=== PATIENT | male | born 1955 | race African-American/Black ===

== ENCOUNTER → 2018-10-02 | Day surgery (SDC) | payer MEDICARE, MEDICAID ==
[~2018-10-02] MED LIST: LIDOCAINE 1% PF 2 ML VIAL. ID PRN; MIDAZOLAM HCL/PF 2 MG/2 ML VIAL. IV PRN; PROPOFOL 40 ML IV ONE; fentaNYL PF VIAL 100 MCG/2 ML VIAL IV PRN
[2018-10-02] MEDS: IV RINGERS,LACTATED 1000ML 1,000 ML IV SCH (08:07)
[2018-10-02 09:46] VITALS: BP 136/84
--- NOTE | 2018-10-02 10:24 | HP ---
ADMIT DATE: 10/02/2018 REASON FOR ADMISSION: History of colorectal screening. HISTORY OF PRESENT ILLNESS: A 63-year-old -[place] male with past medical history significant for osteoarthrosis is seen for a screening colon exam. Bowel habits regular without diarrhea or constipation. There has been no change in weight. No melena or hematochezia. No family history of colon polyps or colon cancer is elicited. He is otherwise without additional complaints. ALLERGIES: None. MEDICATIONS: None. FAMILY AND SOCIAL HISTORY: Noncontributory. He is a nonsmoker, but is a heavy drinker. PAST SURGICAL HISTORY: Noncontributory. REVIEW OF SYSTEMS: Per records. PHYSICAL EXAMINATION: GENERAL: Reveals a thin -[place] male. VITAL SIGNS: Temp 98.4, pulse 74, respirations 20. HEENT: Normocephalic and atraumatic. Pupils and extraocular muscles are not tested. Sclerae are anicteric. NECK: Supple. LUNGS: Clear. CARDIOVASCULAR: Reveals an S1, S2 without S3, S4 or appreciable murmur. ABDOMEN: Reveals soft abdomen, normal bowel sounds without appreciable hepatosplenomegaly. EXTREMITIES: Reveals no cyanosis, clubbing or edema. IMPRESSION: Colorectal screening is warranted at this time. Risks and benefits of procedure including risk of hemorrhage and perforation requiring operation, the patient is willing to proceed. LAVONNE LIRIANO MD DR: ARAMIS/jacy JOB#: [id number] / [id number]
== END | disposition home or self-care (01) ==
LOC: SURG 07:31
PROVIDERS: ATTEND Internal Medicine Gastroenterology
DX: Z12.11 Encounter for screening for malignant neoplasm of colon (principal); K57.30 Diverticulosis of large intestine without perforation or abscess without bleeding; K64.0 First degree hemorrhoids; M19.90 Unspecified osteoarthritis, unspecified site; Z72.89 Other problems related to lifestyle
CPT/HCPCS: G0121; J2704; 45378

== ENCOUNTER 2020-09-19 15:37 | Emergency (ER) | payer MEDICARE, MEDICAID ==
[~2020-09-19] VITALS: Ht 170.2 cm; Wt 58.0 kg
--- NOTE | 2020-09-19 16:16 | PHYS DOC ---
General Adult EDM: Chief Complaint: NEURO SYMPTOMS/DEFICITS HPI: HPI: Patient is a 65 year old male who presents to the ED today with the mother, mother reports patient has had slurred speech since yesterday around 1 PM when he returned home. Mother reports patient left at 10:30 AM and went to unknown which is his typical behavior, he returned back around 1 PM with slurred speech. Mother states she took patient to the PCPs office and was sent at an imaging center for [facility] when they were at the [facility] center they sent patient to the ED. Patient reports drinking an unknown amount of alcohol yesterday. PCP Dr. Enoc Cano Review of Systems: Review of Systems: Constitutional: Denies fever or chills. [] Eyes: Denies change in visual acuity. [] HENT: Denies nasal congestion or sore throat. [] Respiratory: Denies cough or shortness of breath. [] Cardiovascular: Denies chest pain or edema. [] GI: Denies abdominal pain, nausea, vomiting, bloody stools or diarrhea. [] : Denies dysuria. [] Musculoskeletal: Denies back pain or joint pain. [] Integument: Denies rash. [] Neurologic: Reports slurred speech. Denies headache, focal weakness or sensory changes. [] Psychiatric: Denies depression or anxiety. [] Heart Score: Risk Factors: Risk Factors: DM, Current or recent (<one month) smoker, HTN, HLP, family history of CAD, obesity. Risk Scores: Score 0 - 3: 2.5% MACE over next 6 weeks - Discharge Home Score 4 - 6: 20.3% MACE over next 6 weeks - Admit for Clinical Observation Score 7 - 10: 72.7% MACE over next 6 weeks - Early Invasive Strategies Allergies: Allergies: Allergies Coded Allergies Type Severity Reaction Last Updated Verified No Known Drug Allergies 10/02/18 No Physical Exam: PE: Constitutional: Well developed, well nourished, no acute distress, non-toxic appearance. [] HENT: Normocephalic, atraumatic, bilateral external ears normal, oropharynx moist, no oral exudates, nose normal. [] Eyes: PERRLA, EOMI, conjunctiva normal, no discharge. [] Neck: Normal range of motion, no tenderness, supple, no stridor. [] Cardiovascular:Heart rate regular rhythm, no murmur [] Lungs & Thorax: Bilateral breath sounds clear to auscultation [] Abdomen: Bowel sounds normal, soft, no tenderness, no masses, no pulsatile masses. [] Skin: Warm, dry, no erythema, no rash. [] Back: No tenderness, no CVA tenderness. [] Extremities: No tenderness, no cyanosis, no clubbing, ROM intact, no edema. [] Neurologic: Alert and oriented X 3, normal motor function, normal sensory function, no focal deficits noted. Cranial nerves II through XII intact. Slurred speech noted on physical exam. Right facial droop also noted. Psychologic: Affect normal, judgement normal, mood normal. [] EKG: EK interepreted by Dr. Cruz sinus rhythm HR 77 no STEMI[] Radiology/Procedures: Radiology/Procedures: []PROCEDURE: CT HEAD WO CONTRAST CT HEAD INDICATION: Reason: slurred speech / Spl. Instructions: / History: COMPARISON: None Available. Exposure: One or more of the following individualized dose reduction techniques were utilized for this examination: 1. Automated exposure control 2. Adjustment of the mA and/or kV according to patient size 3. Use of iterative reconstruction technique TECHNIQUE: 5 mm contiguous axial images were obtained from the skull base to the vertex in both bone and soft tissue algorithm. FINDINGS: No abnormal attenuation within the brain parenchyma. No evidence of acute intracranial hemorrhage. No extra-axial fluid collections . No mass effect or midline shift. Ventricular size is appropriate. Basal cisterns are patent. No fractures identified.Gomes-white differentiation is preserved.Globes and orbits are within normal limits. Paranasal sinuses and mastoid air cells are clear. IMPRESSION: No acute intracranial findings. Electronically signed by: Andrew Sales MD (09/19/2020 4:26 PM) [id number] DICTATED and SIGNED BY: ANDREW SALES MD DATE: 09/19/20 [id number] 0 PROCEDURE: PORTABLE CHEST 1V XR CHEST 1V History: Reason: slurred speech / Spl. Instructions: / History: Comparison: None. Findings: No consolidation or pleural effusion. Normal heart size. No pneumothorax. Left glenohumeral DJD. Impression: 1. No acute cardiopulmonary process. Electronically signed by: Suhail Burns DO (09/19/2020 4:14 PM) [id number] DICTATED and SIGNED BY: SUHAIL BURNS DO DATE: 09/19/20 [id number] 0 Course & Med Decision Making: Course & Med Decision Making Pertinent Labs and Imaging studies reviewed. (See chart for details) This is a 65-year-old male patient presented to the ED today to be evaluated for slurred speech which began yesterday. Patient resides at home with the mother who brings him to the ED stating he left the house to go to unknown place at 1030am which is his typical behavior. Returned back with slurred speech around 1 PM, he was taken to the PCPs office Dr. Cano and was sent to an imaging c enter for a [facility]. When they were at the [facility] center they were asked to come to the ED because mother stated patient has slurred speech. Patient admits to drinking alot of alcohol yesterday. Patient arrives in the ED with slurred speech. He is outside the treatment window for TPA CBC with a WBC of 3.2, CMP with no acute findings, CT of the head is negative, chest x-ray is negative. Drug screen is negative. No alcohol detected. I spoke to Dr. Cano who stated patient had similar speech yesterday in the office when he was seen, he said patient was in the office brought by the mother because he was having trouble swallowing. Patient speech appears to be alcohol induced slurred speech. Patient himself reports this is his normal speech. Dr. Cano requested we discharge patient home and he can follow-up in the clinic. Cole Disclaimer: Cole Disclaimer: This electronic medical record was generated, in whole or in part, using a voice recognition dictation system. NIHSS Stroke Scale NIH Stroke Scale: NIH Stroke Scale Response (Comments) Value Level of Consciousness: 0 Alert/Responsive 0 LOC Questions: 1 Answers one correctly 1 Best Gaze: 0 Normal 0 Facial Palsy: 1 Minor paralysis 1 Motor - Left Arm 0 No drift 0 Motor - Right Arm 0 No drift 0 Motor - Left Leg 0 No drift 0 Motor: Right Leg 0 No drift 0 Limb Ataxia: 0 Absent 0 Sensory: 0 No loss 0 Best Language: 1 Mild to mod aphasia 1 Dysathria: 1 Mild to moderate 1 Extinction and Inattention: 0 Normal 0 Total 4 Departure Departure Impression: Primary Impression: Alcohol abuse Additional Impression: Slurred speech Disposition: 01 DC HOME SELF CARE/HOMELESS Condition: STABLE Referrals: ENOC CANO MD (PCP) follow up next week Patient Instructions: Alcohol, FAQs Additional Instructions: You were evaluated in the emergency room, we encourage you to consider getting help for alcohol use. Follow-up with your doctor in the course of this week or next week. SRIDHAR HURLEY APRN Sep 19, 2020 16:16
[2020-09-19 16:21] LABS: BASO % 1 % (0-3); EOS # 0.1 x10^3/uL (0.0-0.7); EOS % 2 % (0-3); HEMATOCRIT 40.6 % (39.0-53.0); HEMOGLOBIN 13.7 g/dL (13.0-17.5); LYMPH # 1.2 x10^3/uL (1.0-4.8); LYMPH % 36 % (24-48); MEAN CORPUSCULAR HEMOGLOBIN 31 pg (25-35); MEAN CORPUSCULAR HGB CONC 34 g/dL (31-37); MEAN CORPUSCULAR VOLUME 93 fL (79-100); MONO # 0.5 x10^3/uL (0.0-1.1); MONO % 15 % (0-9); NEUT # 1.5 x10^3/uL (1.8-7.7); NEUT % 46 % (31-73); PLATELET COUNT 280 x10^3/uL (140-400); RED BLOOD COUNT 4.38 x10^6/uL (4.30-5.70); RED CELL DISTRIBUTION WIDTH 13.6 % (11.5-14.5); WHITE BLOOD COUNT 3.2 x10^3/uL (4.0-11.0)
--- NOTE | 2020-09-19 16:29 | RAD ---
CT HEAD INDICATION: Reason: slurred speech / Spl. Instructions: / History: COMPARISON: None Available. Exposure: One or more of the following individualized dose reduction techniques were utilized for thi s examination: 1. Automated exposure control 2. Adjustment of the mA and/or kV according to patient size 3. Use of iterative reconstruction technique TECHNIQUE: 5 mm contiguous axial images were obtained from the skull base to the vertex in both bone and soft tissue algorithm. FINDINGS: No abnormal attenuation within the brain parenchyma. No evidence of acute intracranial hemorrhage. No extra-axial fluid collections. No mass effect or midline shift. Ventricular size is appropriate. Basal cisterns are patent. No fractures identified.Gomes-white differentiation is preserved.Globes and orbits are within normal l imits. Paranasal sinuses and mastoid air cells are clear. IMPRESSION: No acute intracranial findings. Electronically signed by: Andrew Sales MD (09/19/2020 4:26 PM) [id number]
[2020-09-19 16:34] LABS: BILIRUBIN,URINE NEGATIVE (NEG); CLARITY,URINE CLEAR; COLOR,URINE YELLOW; NITRITE,URINE NEGATIVE (NEG); PROTEIN,URINE NEGATIVE (NEG-TRACE)
[2020-09-19 16:41] LABS: BACTERIA,URINE 0 /HPF (0-FEW); RBC,URINE 0 /HPF (0-2); WBC,URINE 0 /HPF (0-4)
[2020-09-19 16:42] LABS: BARBITURATES NEG (NEG); BENZODIAZEPINES NEG (NEG); CANNABINOIDS NEG (NEG); COCAINE NEG (NEG); METHADONE NEG (NEG); OPIATES NEG (NEG); PHENCYCLIDINE NEG (NEG)
[2020-09-19 16:50] LABS: AMPHETAMINE/METHAMPHETAMINE NEG (NEG)
[2020-09-19 16:56] LABS: CALCIUM 9.4 mg/dL (8.5-10.1); CREATININE 0.9 mg/dL (0.7-1.3); GFR 102.8
[2020-09-19 17:04] LABS: ALBUMIN 3.6 g/dL (3.4-5.0); ALBUMIN/GLOBULIN RATIO 0.9 (1.0-1.7); TOTAL BILIRUBIN 0.3 mg/dL (0.2-1.0); TOTAL PROTEIN 7.6 g/dL (6.4-8.2)
[2020-09-19 18:31] VITALS: BP 151/95
--- NOTE | 2020-09-19 21:59 | EKG ---
[facility] [address] [place] [address] Test Date: 2020-09-19 Test Time: 16:02:29 Pat Name: HELEN SHARPE Department: Room: Gender: De Icer Finisher: PA : [id number] Requested By: SRIDHAR HURLEY Order Number: [id number] Reading MD: Measurements Intervals [place] Rate: 77 P: 44 [place]: 154 QRS: 16 QRSD: 96 T: 42 QT: 366 QTc: 416 Interpretive Statements SINUS RHYTHM NORMAL ECG RI6.02 No previous ECG available for comparison
== END 2020-09-19 18:40 | disposition home or self-care (01) ==
LOC: ER 15:37
DX: R47.81 Slurred speech (principal); F10.10 Alcohol abuse, uncomplicated; Y90.0 Blood alcohol level of less than 20 mg/100 ml
CPT/HCPCS: 36415; 70450; 71045; 80053; 80307; 81001; 82962; 83690; 83735; 83880; 84443; 84484; 85025; 85610; 85730; 93005; 99285; G0480